=== PATIENT | female | born 1975 | race American Indian/Alaskan Native ===

== ENCOUNTER 2019-07-11 15:41 | Emergency (ER) | payer SELFPAY ==
--- NOTE | 2019-07-11 15:53 | Emergency Department Report ---
Blank Doc - Documentation Documentation: This is a 43-year-old female that presents with left eye pain and foreign body sensation. This initial assessment/diagnostic orders/clinical plan/treatment(s) is/are subject to change based on patient's health status, clinical progression and re- assessment by fellow clinical providers in the ED. Further treatment and workup at subsequent clinical providers discretion. Patient/guardians urged not to elope from the ED as their condition may be serious if not clinically assessed and managed. Initial orders include: 1- Patient sent to [facility] for further evaluation and treatment 2- bhardwaj lamp/tonopen to be done
[2019-07-11 15:55] VITALS: BP 171/98
[2019-07-11] MEDS ORDERED: FUL-GLO OP ONE ×2 (16:55→16:58)
--- NOTE | 2019-07-11 17:39 | Emergency Department Report ---
[facility] Chief Complaint: Eye Problems Stated Complaint: (L) EYE PAIN Time Seen by Provider: 07/11/19 15:52 Duration: 2 Days Side: Left Symptoms: Yes Eye Redness, Yes Eye Pain, No Eye Itching, No Mucous Drainage, No Purulent Drainage, No Blurred Vision, No Preceding URI, No H/O Allergic Rhinitis, No Contact Lens Use, No Trauma, No Fever, No Headache Other History: This is a 43-year-old female presents complaining left eye irritation x 2 days ago. Patient's that she feels like there is something in possibly eyelashes but she is un sure. She denies any trauma to the eye. She denies contact use or glasses. 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 - Surgical History Additional Surgical History: left eye - Social History Smoking Status: Current Every Day Smoker Substance Use Type: Alcohol - Medications Home Medications: Home Medications Medication Instructions Recorded Confirmed Last Taken Type Cyclobenzaprine [Flexeril] 10 mg PO TID PRN #15 tablet 04/27/16 Unknown Rx Fluticasone [Flonase] 2 spray NS QDAY #1 bottle 04/27/16 Unknown Rx Naproxen [Naprosyn TAB] 500 mg PO BID #20 tablet 04/27/16 Unknown Rx Ketorolac Tromethamine [Ketorolac 1 - 2 drops OP TID #1 bottle 07/11/19 Unknown Rx Tromethamine 0.4% opth soln] Ofloxacin 0.3% [Ocuflox 0.3% opth] 1 - 2 drops OP Q6H #1 bottle 07/11/19 Unknown Rx [facility] Exam - Exam General: Vital signs noted. No distress. Alert and acting appropriately. Eye Exam: Left Injection, Left Fluorescein Uptake, Both EOMI, Neither Chemosis, Neither Abnormal Pupil, Neither Eye Foreign Body, Neither Lid Foreign Body, Neither Mucous Discharge, Neither Purulent Discharge HEENT: No Nasal Congestion, No Pharyngeal Erythema Remainder of HEENT: Normal Lungs: Yes Clear Lung Sounds, Yes Good Air Exchange, No Wheezes, No Stridor, No Cough, No Nasal Flaring, No Retractions, No Use of Accessory Muscles Exam: Vision is intact bilaterally. Left eye is eye implant ED Course Vital Signs 07/11/19 15:53 Temperature 98.1 F Pulse Rate 74 Respiratory 20 Rate Blood Pressure 171/98 O2 Sat by Pulse 100 Oximetry ED Medical Decision Making - Medical Decision Making 43-year-old female presents with this corneal abrasion. ED course: bhardwaj lamp test shows small corneal abrasion at 6:00. Discussed this with the patient. Discussed the patient will be going home on antibiotic eyedrops to apply 4-5 times a day I discussed the patient we'll give her zinc plate grainer referral if needed he'll follow-up if symptoms persist. I discussed the patient is new or worsening symptoms to return to ED immediately Patient's vital signs are stable she's in no distress. Patient is vision is intact, visual acuity test performed, within normal limits. Discussed the patient to follow up with her primary care physician in 3-5 days. Critical care attestation.: If time is entered above; I have spent that time in minutes in the direct care of this critically ill patient, excluding procedure time. ED Disposition Clinical Impression: Corneal abrasion, left Disposition: [id number] TO HOME OR SELFCARE Is pt being admited?: No Does the pt Need Aspirin: No Condition: Stable Instructions: Corneal Abrasion (ED), Conjunctivitis (ED) Additional Instructions: Make sure to follow up with the primary care physician as discussed. Take all your medications as you've been prescribed. If you have any worsening symptoms or develop new symptoms please return to ED immediately. Prescriptions: Ketorolac Tromethamine [Ketorolac Tromethamine 0.4% opth soln] 1 - 2 drops OP TID #1 bottle Ofloxacin 0.3% [Ocuflox 0.3% opth] 1 - 2 drops OP Q6H #1 bottle Referrals: PRIMARY CAREMD [Primary Care Provider] - 3-5 Days YULI CISNEROS MD [Staff Physician] - 3-5 Days Forms: Work/School Release Form(ED) Time of Disposition: 17:43
== END 2019-07-11 17:52 | disposition home or self-care (01) ==
LOC: ED 15:41
DX: S05.02XA Injury of conjunctiva and corneal abrasion without foreign body, left eye, initial encounter (principal); E11.9 Type 2 diabetes mellitus without complications; F17.200 Nicotine dependence, unspecified, uncomplicated; Z79.899 Other long term (current) drug therapy; X58.XXXA Exposure to other specified factors, initial encounter; Y93.89 Activity, other specified; Y92.89 Other specified places as the place of occurrence of the external cause; Y99.8 Other external cause status
CPT/HCPCS: 99282